=== PATIENT | female | born 1985 | race African-American/Black ===

== ENCOUNTER 2016-08-17 19:15 | Emergency (ER) | payer MEDICAID ==
[~2016-08-17] VITALS: Ht 170.2 cm; Wt 64.0 kg
[~2016-08-17 19:15] MED LIST: DEPO PROVERA
[2016-08-17 20:21] VITALS: BP 156/87
== END 2016-08-18 04:15 | disposition left against medical advice (07) ==
LOC: ER 19:15
DX: Z53.21 Procedure and treatment not carried out due to patient leaving prior to being seen by health care provider (principal)
CPT/HCPCS: 93005

== ENCOUNTER 2018-09-13 21:17 | Emergency (ER) | payer MEDICAID ==
[~2018-09-13] VITALS: Ht 170.2 cm; Wt 64.2 kg
[2018-09-13 23:26] VITALS: BP 139/70
== END 2018-09-14 01:44 | disposition left against medical advice (07) ==
LOC: ER 21:17
DX: Z53.21 Procedure and treatment not carried out due to patient leaving prior to being seen by health care provider (principal)

== ENCOUNTER 2018-09-14 11:26 | Emergency (ER) | payer MEDICAID ==
[~2018-09-14] VITALS: Ht 162.6 cm; Wt 63.0 kg
[2018-09-14 12:45] VITALS: BP 128/82
== END 2018-09-14 15:26 | disposition left against medical advice (07) ==
LOC: ER 11:43
DX: L02.91 Cutaneous abscess, unspecified (principal); Z53.21 Procedure and treatment not carried out due to patient leaving prior to being seen by health care provider